=== PATIENT | female | born 1960 | race Caucasian/White ===

== ENCOUNTER 2016-04-08 12:32 | Emergency (ER) | payer OTHER, MEDICARE ==
[~2016-04-08] VITALS: Ht 162.6 cm; Wt 90.7 kg
[~2016-04-08 12:32] MED LIST: BACTRIM DS 8001 TAB PO; BUPROPION XL300 M1 PO; BUPROPION300 MG PO; CARBIDOPA-LEVO1 EAC8 PO; CIPROFLOXACIN500 MG PO; CLONAZEPAM0.5 M2 PO; CLONAZEPAM0.5 MG PO; CLONIDINE HCL0.1 MG PO; CLONIDINE0.1 MG PO; DEPAKOTE ER250 M1 PO; DILAUDID2 MG PO; FOLIC ACID 1 MG PO; FOLIC ACID1 M1 PO; IMITREX50 M1 PO; MOTRIN 600 MG600 MG PO; RISPERDAL1 M1 PO; RISPERIDONE2 MG PO; SINEMET 10-1001 TAB PO; TOPAMAX25 M1 PO; TOPAMAX25 MG PO; TOPAMAX50 M1 PO; TRAZODONE HCL150 M1 PO; TRAZODONE150 MG PO; TYLENOL #31 TAB PO; VALACYCLOVIR1000 MG PO
[2016-04-08 12:46] VITALS: BP 128/74
--- NOTE | 2016-04-08 13:12 | ED SKIN/ALLERGY COMPLAINT ---
History of Present Illness General Chief Complaint: Skin Rash/ Abcess Stated Complaint: RASH ON LEFT BUTTOCKS, PER PT ?SHINGLES Source: patient Exam Limitations: no limitations Vital Signs & Intake/Output Vital Signs & Intake/Output Vital Signs Date Time Temp Pulse Resp B/P Pulse O2 O2 Flow FiO2 Ox Delivery Rate 04/08 1246 97.3 56 18 128/74 99 Room Air Room Air Allergies Coded Allergies: oxycodone (From Percocet) (Intermediate, ITCHY 06/30/15) Reconcile Medications Bupropion HCl (Bupropion XL) (Unknown Strength) TAB.ER.24H (Unknown Dose) PO DAILY ANXIETY (Reported) Clonazepam (Unknown Strength) TABLET (Unknown Dose) PO TID ANXIETY (Reported) Clonidine HCl 0.1 MG TABLET 1 TAB PO DAILY ANXIETY (Reported) Divalproex Sodium (Depakote ER) 250 MG TAB.ER.24H 1 TAB PO QAM (Reported) Folic Acid 1 MG TABLET 1 TAB PO DAILY SUPPLEMENT (Reported) Risperidone (Risperdal) 1 MG TABLET 1 TAB PO DAILY ANXIETY (Reported) Sumatriptan Succinate (Imitrex) 50 MG TABLET 1 TAB PO AD MIGRAINE (Reported) Topiramate (Topamax) (Unknown Strength) TABLET (Unknown Dose) PO DAILY ANXIETY (Reported) Trazodone HCl (Unknown Strength) TABLET (Unknown Dose) PO DAILY ANXIETY ( Reported) Valacyclovir HCl (Valtrex) 1,000 MG TABLET 1 TAB PO TID SHINGLES Valacyclovir HCl (Valacyclovir) 1,000 MG TABLET 1 TAB PO TID SHINGLES Triage Note: TRIAGE: 55 Y/O FEMALE PRESENTS C/O ?SHINGLES TO LEFT BUTTOCKS. REPORTS HISTORY OF SAME, WAS TREATED WITH VALTREX. Triage Nurses Notes Reviewed? yes Onset: Abrupt Duration: constant Timing: single episode today Severity: mild Location: extremities Possible Factors: no cause identified HPI: Patient is a 55-year-old female who presents emergency room saying that her visiting nurse today noticed the patient has concerns of a shingles rash to the left lateral gluteal region in which patient was advised to present to the emergency room. Patient denies any symptoms denies any pain fever chills itching discharge from skin and is otherwise without complaints. Patient states that she's had multiple shingles ERUPTIONS RASHES in the past treated with Valtrex with complete resolution. Denies any recent exposure to any etiology or irritants for symptoms (CECILIO PADILLA) Past History Travel History Traveled to [place] past 21 day No Medical History Any Pertinent Medical History? see below for history Neurological: migraine, Per H&P: New-encephalomalacia EENT: NONE Cardiovascular: NONE Respiratory: NONE Gastrointestinal: colitis Hepatic: NONE Renal: nephrolithiasis, BLADDER INFECTIONS Musculoskeletal: BLE WEAKNESS AT TIMES ?ARTHRITIS Psychiatric: PTSD major depressive disorder with psychotic features Endocrine: NONE Blood Disorders: NONE Cancer(s): NONE PITCH GATHERER/Reproductive: NONE Surgical History Surgical History: non-contributory, N Psychosocial History Who do you live with Patient and family Services at Home Home Health Aide, Nursing, Physical Therapy What is your primary language Danish Tobacco Use: Never used ETOH Use: denies use Illicit Drug Use: denies illicit drug use Family History Hx Contributory? No (CECILIO PADILLA) Review of Systems Review of Systems Constitutional: Reports: no symptoms. EENTM: Reports: no symptoms. Respiratory: Reports: no symptoms. Cardiovascular: Reports: no symptoms. GI: Reports: no symptoms. Genitourinary: Reports: no symptoms. Musculoskeletal: Reports: no symptoms. Skin: Reports: see HPI, change in skin color, rash. Neurological/Psychological: Reports: no symptoms. Hematologic/Endocrine: Reports: no symptoms. Immunologic/Allergic: Reports: no symptoms. All Other Systems: Reviewed and Negative (CECILIO PADILLA) Physical Exam Physical Exam General Appearance: no apparent distress, alert, comfortable Head: atraumatic Eyes: Bilateral: normal appearance. Ears, Nose, Throat: hearing grossly normal Neck: normal inspection, supple Respiratory: normal breath sounds Back: normal inspection, normal range of motion Extremities: normal inspection, normal capillary refill Neurologic/Psych: no motor/sensory deficits, awake, alert Skin: intact Skin Problem Location: lower extremities Lymphatic: no anterior cervical mala Diagram Body: 1) #4 LINEAR PATTERNED MACULAR ERYTHEMATOUS CIRCULAR RASH NONTENDER, NO VESICLES, NO FLUCTUANCE, NO DISCHARGE 2) #4 LINEAR PATTERNED MACULAR ERYTHEMATOUS CIRCULAR RASH NONTENDER, NO VESICLES, NO FLUCTUANCE, NO DISCHARGE (CECILIO PADILLA) Progress Differential Diagnosis: abscess/cellulitis, allergic reaction, angioedema, contact dermatitis, drug reaction, erythema multiforme, lyme disease, piyriasis rosea, RMSF, scarlet fever, shingles, syphilis/gonococcemia, urticaria Plan of Care: PT IS AFEBRILE NONTOXIC APPEARING RASH IS OBSERVED TO HAVE HERPETIC RASH (CECILIO PADILLA) Departure Departure Disposition: HOME OR SELF CARE Condition: Stable Clinical Impression Primary Impression: Shingles rash Referrals: AD PERRY M.D. (PCP/Family) Additional Instructions: As discussed begin the prescription of Valtrex as directed for the full course. PRESCRIPTION IS WAITING AT YOUR PHARMACY-. [facility]. FOLLOW UP WITH YOUR DOCTOR ON SUNDAY IF NO BETTER, CONTINUE TO HAVE YOUR NURSE MONITOR THE RASH, IF SYMPTOMS WORSEN, RETURN TO THE ER. Departure Forms: Customer Survey General Discharge Information Prescriptions: Current Visit Scripts Valacyclovir HCl (Valtrex) 1 TAB PO TID #21 TAB (CECILIO PADILLA) PA/SHIFT COORDINATOR Co-Sign Statement Statement: ED Attending supervision documentation- [] I saw and evaluated the patient. I have also reviewed all the pertinent lab results and diagnostic results. I agree with the findings and the plan of care as documented in the PA's/SHIFT COORDINATOR's documentation. x I have reviewed the ED Record and agree with the PA's/SHIFT COORDINATOR's documentation. [] Additions or exceptions (if any) to the PAs/SHIFT COORDINATOR's note and plan are summarized below: [] (SUKH STEELE,JOSH)
[2016-04-08] MEDS ORDERED: VALTREX1000 MG PO (13:19)
[2016-06-09] MEDS ORDERED: ABILIFY20 M1 PO (15:44)
== END 2016-04-08 14:10 ==
LOC: ERH 12:32
DX: B02.9 Zoster without complications (principal)

== ENCOUNTER 2016-04-25 18:06 | Emergency (ER) | payer OTHER, MEDICARE ==
[~2016-04-25] VITALS: Ht 160 cm; Wt 90.7 kg
[~2016-04-25 18:06] MED LIST changes: +VALTREX1000 MG PO
--- NOTE | 2016-04-25 18:38 | ED CARDIAC/CP/PALPITATIONS ---
History of Present Illness General Chief Complaint: Chest Pain Stated Complaint: CP Source: patient, family, old records Exam Limitations: no limitations Vital Signs & Intake/Output Vital Signs & Intake/Output Vital Signs Date Time Temp Pulse Resp B/P Pulse O2 O2 Flow FiO2 Ox Delivery Rate 04/25 2014 97.2 47 17 158/82 96 Room Air 04/25 1817 97.6 50 18 163/92 98 Room Air Allergies Coded Allergies: oxycodone (From Percocet) (Intermediate, ITCHY 06/30/15) Reconcile Medications Aripiprazole (Abilify) 20 MG TABLET 1 TAB PO DAILY MENTAL HEALTH (Reported) Bupropion HCl (Bupropion XL) (Unknown Strength) TAB.ER.24H (Unknown Dose) PO DAILY ANXIETY (Reported) Carbidopa/Levodopa (Carbidopa-Levo ER 50-200 Tab) 50 MG-200 MG TABLET.ER 1 TAB PO TID [place] (Reported) Clonazepam (Unknown Strength) TABLET (Unknown Dose) PO TID ANXIETY (Reported) Folic Acid 1 MG TABLET 1 TAB PO DAILY SUPPLEMENT (Reported) Nadolol 40 MG TABLET 1 TAB PO DAILY MIGRAINES (Reported) Prazosin HCl 2 MG CAPSULE 1 CAP PO QPM UNKNOWN (Reported) Sumatriptan Succinate (Imitrex) 50 MG TABLET 1 TAB PO AD MIGRAINE (Reported) Triage Note: RECEIVED 55 YO FEMALE C/O MID STERNAL CHEST PAIN RADIATING TO BACK INTERMITTENTLY X 2 WEEKS. USUALLY LASTS A FEW MINITES. TODAY, PAIN STARTED AT 5 PM AND LASTED OVER AN HOUR. PAIN IS MILD, 3/10. MILD SOB. Triage Nurses Notes Reviewed? yes HPI: Patient is a 55 year old female presents complaining of midsternal chest pain intermittent x 2 weeks. Episodes 2-5 minutes approximately 3 episodes per day. No precipitating factors. Pain worsens with deep breath when chest pain is present. Last episode onset at approximately 1700 today and has been continuous , moderate to severe prior to arrival, currently mild. Associated dizziness when pain is present. Denies dyspnea, orthopnea, chest pain with exertion, dyspnea with exertion, lower extremity pain, lower extremity swelling. (ROBERTO SMYTH,SNEHA) Past History Travel History Traveled to [place] past 21 day No Medical History Any Pertinent Medical History? see below for history Neurological: migraine, Per H&P: New-encephalomalacia EENT: NONE Cardiovascular: NONE Respiratory: NONE Gastrointestinal: colitis Hepatic: NONE Renal: nephrolithiasis, BLADDER INFECTIONS Musculoskeletal: BLE WEAKNESS AT TIMES ?ARTHRITIS Psychiatric: PTSD major depressive disorder with psychotic features Endocrine: NONE Blood Disorders: NONE Cancer(s): NONE WATER COMMISSIONER/Reproductive: NONE Surgical History Surgical History: non-contributory, N Psychosocial History Who do you live with Patient and family Services at Home Home Health Aide, Nursing, Physical Therapy What is your primary language Portuguese Tobacco Use: Never used Family History Hx Contributory? No (SNEHA FRAUSTO) Review of Systems Review of Systems Constitutional: Denies: chills, fever. EENTM: Reports: no symptoms. Respiratory: Denies: cough, short of breath. Cardiovascular: Reports: see HPI. GI: Denies: abdominal pain, nausea, vomiting. Genitourinary: Reports: no symptoms. Musculoskeletal: Reports: back pain. Skin: Reports: no symptoms. Neurological/Psychological: Reports: no symptoms. Hematologic/Endocrine: Reports: no symptoms. Immunologic/Allergic: Reports: no symptoms. (SNEHA FRAUSTO) Physical Exam Physical Exam General Appearance: well developed/nourished, alert, awake Head: atraumatic, normal appearance Eyes: Bilateral: normal appearance, PERRL, EOMI. Ears, Nose, Throat: normal pharynx, normal ENT inspection, hearing grossly normal Neck: normal inspection, supple, full range of motion Respiratory: normal breath sounds, chest non-tender, no respiratory distress, lungs clear Cardiovascular: bradycardia (no appreciable murmur) Peripheral Pulses: 2+ radial (R), 2+ radial (L), 2+ dorsalis pedis (R), 2+ dorsalis pedis (L) Gastrointestinal: soft, non-tender Back: normal inspection, normal range of motion Extremities: normal inspection, normal capillary refill, normal range of motion, no edema Neurologic/Psych: no motor/sensory deficits, awake, alert, oriented x 3, normal mood/affect Skin: intact, normal color, warm/dry Lymphatic: no anterior cervical mala Core Measures ACS in differential dx? Yes ASA ordered for poss ACS? Yes-ordered Severe Sepsis Present: No Septic Shock Present: No (SNEHA FRAUSTO) Progress Differential Diagnosis: AMI, aortic dissection, costochondritis, hyperventilation, musculoskeletal pain, myocarditis, pericarditis, pneumonia, pneumothorax, pulmonary embolism, PUD/GERD, unstable angina, V-fib/V-Tach Plan of Care: Orders Procedure Date/time Status Telemetry/Waiter/Waitress Tavern 04/25 1836 Active TROPONIN LEVEL 04/25 1836 Complete D-DIMER 04/25 1836 Complete COMPREHENSIVE METABOLIC PANEL 04/25 1836 Complete CBC WITHOUT DIFFERENTIAL 04/25 1836 Complete EKG 04/25 1806 Active Laboratory Tests 04/25/16 1846: Anion Gap 5, Estimated GFR > 60, BUN/Creatinine Ratio 18.8, Glucose 85, Calcium 9.7, Total Bilirubin 0.5, AST 75 H, ALT 49, Alkaline Phosphatase 118, Troponin I < 0.01, Total Protein 6.8, Albumin 4.0, Globulin 2.8, Albumin/Globulin Ratio 1.4, D-Dimer 244 H, CBC w Diff NO MAN DIFF REQ, RBC 5.19, MCV 81.6, MCH 26.6 L , RDW 16.6 H, MPV 7.0 L, Gran % 69.9, Lymphocytes % 21.0, Monocytes % 7.2, Eosinophils % 1.5, Basophils % 0.4, Absolute Granulocytes 4.8, Absolute Lymphocytes 1.4, Absolute Monocytes 0.5, Absolute Eosinophils 0.1, Absolute Basophils 0, PUBS MCHC 32.6 L Chest pain episodes x 2 weeks with no acute ekg changes and negative troponin. Pain appears atypical for ACS. 04/25/2016 8:59:19 PM: Results of chest x-ray, labs, and ekg discussed with patient and her family member, patient chest pain free. Discussed with Dr. Duarte: can have patient follow up in the office closely for further evaluation. (ROBERTO SMYTH,SNEHA) Diagnostic Imaging: Viewed by Me: Radiology Read. Discussed w/RAD: Radiology Read. CXR Impression: PATIENT: JETT MARCELO PRESENT AGE: 55 PATIENT ACCOUNT NO: [id number] : 61 LOCATION: [facility] ORDERING PHYSICIAN: SNEHA SMYTH SERVICE DATE: 04/25/16-1836 EXAM TYPE: RAD - XRY-CHEST XRAY, PA AND LATERAL EXAMINATION: XR CHEST CLINICAL INFORMATION: Chest pain. COMPARISON: No relevant prior imaging available. TECHNIQUE: 2 views of the chest were obtained. FINDINGS: Lung volumes are low. There is no focal consolidative disease, pleural effusion, or pneumothorax. The cardiac silhouette and upper mediastinal contours are normal. No acute osseous finding. IMPRESSION: Unremarkable chest radiograph. No consolidative disease or effusion. DICTATED BY : JOAN ZAMORA MD DATE/TIME DICTATED:04/25/162050 LEAD SOFTWARE TESTER: ITA DATE/TIME TRANSCRIBED:04/25/162050 CONFIDENTIAL, DO NOT COPY WITHOUT APPROPRIATE AUTHORIZATION. <Electronically signed in Other Vendor System> SIGNED BY: JOAN ZAMORA MD 04/25/162054 Initial ED EKG: sinus bradycardia 49 bpm normal axis, normal intervals, no acute st/t wave changes. Prior EKG: changed (change in rate) Rhythm Strip: sinus bradycardia (SNEHA FRAUSTO) Departure Departure Time of Disposition: 2057 Disposition: HOME OR SELF CARE Condition: Stable Clinical Impression Primary Impression: Chest pain Qualifiers: Chest pain type: unspecified Qualified Code: R07.9 - Chest pain, unspecified Referrals: AD PERRY M.D. (PCP/Family) MEI STEELE PhD,JOVANY Murray Additional Instructions: Follow up with Dr. Duarte(network lead) this week for further evaluation. Call in the morning for appointment. Return to the ER if difficulty breathing, chest pain returning or worsening of symptoms. Departure Forms: Customer Survey General Discharge Information (SNEHA FRAUSTO) PA/SPANISH LECTURER Co-Sign Statement Statement: ED Attending supervision documentation- [] I saw and evaluated the patient. I have also reviewed all the pertinent lab results and diagnostic results. I agree with the findings and the plan of care as documented in the PA's/SPANISH LECTURER's documentation. [X] I have reviewed the ED Record and agree with the PA's/SPANISH LECTURER's documentation. [] Additions or exceptions (if any) to the PAs/SPANISH LECTURER's note and plan are summarized below: [] (WANDER STEELE,LYNDA Schreiber) Critical Care Note Critical Care Note Critical Care Time: non-applicable (SNEHA FRAUSTO)
[2016-04-25 19:06] LABS: ABSOLUTE BASOPHIL COUNT 0 /CUMM (0.0-0.2); ABSOLUTE EOSINOPHIL COUNT 0.1 /CUMM (0.0-0.7); ABSOLUTE GRANULOCYTE CT 4.8 /CUMM (1.4-6.5); ABSOLUTE LYMPH COUNT 1.4 /CUMM (1.2-3.4); ABSOLUTE MONOCYTE COUNT 0.5 /CUMM (0.10-0.60); BASOPHIL % 0.4 % (0.0-2.0); EOSINOPHIL % 1.5 % (0-5); GRANULOCYTE % 69.9 % (42.2-75.2); HEMATOCRIT 42.3 % (37-47); MEAN CORPUSCULAR HGB 26.6 PG (27.0-31.0); MEAN CORPUSCULAR HGB CONC 32.6 G/DL (33.0-37.0); MEAN CORPUSCULAR VOLUME 81.6 FL (81.0-99.0); PLATELET COUNT 211 /CUMM (130-400); RBC DISTRIBUTION WIDTH 16.6 % (11.5-14.5); RED BLOOD CELL CT 5.19 /CUMM (4.20-5.40); WHITE BLOOD CELL COUNT 6.8 /CUMM (4.8-10.8)
[2016-04-25] MEDS ORDERED: ABILIFY20 M1 PO (19:35)
[2016-04-25] MEDS ORDERED: NADOLOL40 M1 PO (19:35)
[2016-04-25] MEDS ORDERED: PRAZOSIN HCL2 M1 PO (19:36)
[2016-04-25] MEDS ORDERED: CARBIDOPA-LEVO1 EAC9 PO (19:38)
[2016-04-25 20:15] VITALS: BP 158/82
--- NOTE | 2016-04-25 20:55 | RADIOLOGY REPORT ---
EXAMINATION: XR CHEST CLINICAL INFORMATION: Chest pain. COMPARISON: No relevant prior imaging available. TECHNIQUE: 2 views of the chest were obtained. FINDINGS: Lung volumes are low. There is no focal consolidative disease, pleural effusion, or pneumothorax. The cardiac silhouette and upper mediastinal contours are normal. No acute osseous finding. IMPRESSION: Unremarkable chest radiograph. No consolidative disease or effusion.
[2016-06-09] MEDS ORDERED: ABILIFY20 M1 PO (15:44)
== END 2016-04-25 21:06 ==
LOC: ERH 18:06
PROVIDERS: Physician Assistant
DX: R07.9 Chest pain, unspecified (principal)
CPT/HCPCS: 93005; 93010

== ENCOUNTER → 2016-05-09 | Day surgery (SDC) | payer OTHER, MEDICARE ==
[~2016-05-09] VITALS: Ht 162.6 cm; Wt 93.0 kg
[~2016-05-09] MED LIST changes: +ABILIFY20 M1 PO; +CARBIDOPA-LEVO1 EAC9 PO; +NADOLOL40 M1 PO; +PRAZOSIN HCL2 M1 PO
--- NOTE | 2016-05-09 13:14 | Operative Report ---
Operative/Inv Procedure Report Surgery Date: 05/09/16 Name of Procedure: right ureter ESWL. fluoroscopy Pre-Operative Diagnosis: right ureter stone with hydro. Post-Operative Diagnosis: same Estimated Blood Loss: none Surgeon/Stitcher Set Up Operator Automatic: CECILLE SKAGGS MD Anesthesia: moderate sedation Complications: none Operative/Procedure Note Note: The patient was taken to the operating room and placed on the ESWL table in supine position. With the patient awake, timeout was performed to cofirm correct identity, procedure, laterality, anesth., and other pertinent rodriguez- operative information. The patient's RIGHT flank was placed over the table cut -out, overlying the dome of the shockwave generator. C-arm fluroscopy, as well as renal US, was used to locate the stone, and evaluate the RIGHT kidney. The stone was clearly visible on fluoroscopy at the distal right ureter, measuring approximately 8 mm stone burden. Renal US confimred mild hydronephrosis, and one additional 6 mm stone at LP, no tumor, seen in the right kidney. After adequate anesthesia, the right ureter stone's position was optimized for Shockwave lithotrypsy using fluoroscopy in AP and oblique views. The E.S.W.L. was initiated at low power levels x 200 shocks. After noting the patient's tolerance to the shockwaves, the shock wave power level was quickly maximized. Toward the end of the procedure, the composition of the stone had changed significantly indicating the pulverization of the ureter stone. A total of 3000 shockwaves were delivered to the stone in order to achieve adequate lithotrypsy. The patient tolerated both the procedure well, was awakened, and taken to recovery in satisfactory condition via stretcher. The pt will be dischared home with pain meds, diet orders, and intructions to catch fragments with straining the urine. The patient is to have follow-up renal ultrasound and KUB in 1-2 weeks, prior to follow-up visit in my office. Discharge Disposition: Same Day Admissions CC: CECILLE SKAGGS MD
== END ==
LOC: STS 03:09
DX: N13.2 Hydronephrosis with renal and ureteral calculous obstruction (principal); Z79.899 Other long term (current) drug therapy

== ENCOUNTER → 2016-06-13 | Day surgery (SDC) | payer OTHER, MEDICARE ==
[~2016-06-13] VITALS: Ht 162.6 cm; Wt 90.7 kg
--- NOTE | 2016-06-13 14:03 | Operative Report ---
Operative/Inv Procedure Report Surgery Date: 06/13/16 Name of Procedure: CYSTOSCOPY: RIGHT URETEROSCOPY WITH RETROGRADE PYELOGRAM, RIGHT STENT PLACEMENT. Pre-Operative Diagnosis: RIGHT HYDRO. Post-Operative Diagnosis: SAME Estimated Blood Loss: scant Surgeon/Claims Manager: CECILLE SKAGGS MD Anesthesia: laryngeal mask airway Specimens: UCX Complications: NONE Operative/Procedure Note Note: Patient was taken to the operating room placed on the OR table in supine position. Timeout was performed, with the patient awake, in order to confirm the patient's correct identity, procedure, laterality, anesthesia, and other pertinent perioperative information.. After adequate anesthesia and antibiotics , the patient was then placed in lithotomy stirrups, draped and prepped in the usual surgical fashion. A 22 Turkish cystoscope sheath with 30 angle lens was inserted without difficulty. Upon entering the bladder, the bladder was noted to be free of tumor, free of stone. Both orifices were in their orthotopic position, with clear reflux from the left ureter, but no reflux in the right. The right ureteral orifice was intubated with an 8 Turkish cone-tipped catheter. Retrograde pyelogram was performed revealing a amorphos\us filling defect in the renal pelvis, with hydronephrosis. The cone-tipped catheter was removed, and then the right orifice was intubated with a 0.035 safety gluidewire. The Glidewire was advanced into the right ureter, and renal pelvis, with fluoroscopic visualization. The flexible ureteroscope was railroaded over the Glidewire. With fluoroscopic confirmation of the flexible ureteroscope in the right renal pelvis, the Glidewire was removed. Pyelosocpy and calyxoscopy was performed revealing right mid-pole 6mm stone. The gluidewire was re-inserted via the ureteroscope, and the ureteroscope was removed, leaving the gluide wire in place. The gluide wire was then back-loaded onto a 22 Turkish cystoscope sheath with a 30 angle lens. The cystoscope was then reinserted into the bladder where the right orifice was visualized with the Glidewire and place. Over this Glidewire a 6x22 Bard onlay stent was inserted with the proximal coil visualized in the renal pelvis with fluoroscopy and the distal coil in the bladder cystoscopically the Glidewire was removed. Fluoroscopy was then performed in order to reveal the stent to be in proper place. The bladder was then drained via the cystoscope which was then removed. The patient tolerated the procedure well, all sponge needle and a cement count were correct at the end of the case, and the patient was awakened and taken to the recovery room in satisfactory condition. Findings: 6MM RIGHT MID-POLE STONE: 6X22 STENT INSERTED WITHOUT DIFFICULTY Discharge Disposition: PACU CC: CECILLE SKAGGS MD
--- NOTE | 2016-06-14 08:39 | RADIOLOGY REPORT ---
EXAMINATION: XR INTRAOPERATIVE FLUOROSCOPY AND SPOT FILMS CLINICAL INDICATION: Right cystoscopy with retrograde pyelogram and stent placement COMPARISON: Renal ultrasound dated 05/30/2016 and KUB dated 05/30/2016. TECHNIQUE: Fluoroscopic equipment was dedicated to the operating room for the performance of a cystoscopy and retrograde pyelogram. 4 fluoroscopic spot films were obtained and are archived in PACS. Fluoroscopy time: 0.4 minutes. FINDINGS: There is partial opacification of a dilated right renal pelvis and upper pole calyces and right ureter. On the final images, a stent is in place with proximal pigtail in the proximal right ureter. IMPRESSION: Right ureteral stent in place with proximal pigtail in the proximal ureter.
== END ==
LOC: STS 01:21
DX: N13.2 Hydronephrosis with renal and ureteral calculous obstruction (principal); Z87.442 Personal history of urinary calculi
CPT/HCPCS: 74000; C2617; J2250

== ENCOUNTER → 2016-07-06 | Day surgery (SDC) | payer OTHER, MEDICARE ==
[~2016-07-06] VITALS: Ht 162.6 cm; Wt 90.7 kg
--- NOTE | 2016-07-06 13:32 | Operative Report ---
Operative/Inv Procedure Report Surgery Date: 07/06/16 Name of Procedure: Cystoscopy, right stent removal, right ureteroscopy with laser standby, basket extraction of ureter stone. LEFT renal ESWL with fluoroscopy. Pre-Operative Diagnosis: LEFT renal stone: RIGTH ureter stone and stent. Post-Operative Diagnosis: same Estimated Blood Loss: scant Surgeon/Bench Hand Machine: ECCILLE SKAGGS MD Anesthesia: moderate sedation Specimens: right ureter stone and stent. Complications: none Condition: improved-pain free in RR Operative/Procedure Note Note: The patient was taken to the operating room placed on the OR table in supine position. Timeout was performed, with the patient awake, in order to confirm correct procedure, laterality, anesthesia, and other pertinent perioperative information. After adequate anesthesia, and antibiotics, the patient's left flank was then positioned over the ESWL table cutout overlying the treatment dome. Fluoroscopy, using AP and oblique views, as well as renal ultrasound, or performed in order to locate the left renal stone. The position of the stone was optimized, and positioned in the middle of the ESWL crosshairs. The stone was measured to be approximately 6 mm in size. ESWL was initiated at low power, and after 200 shockwaves delivered, noting the patient's tolerance to the shockwaves, the power was increased to maximum. At the end of 2500 shockwaves, fluoroscopy confirms the change in consistency of the stone, indicating shattering of the stone. The patient tolerated this procedure well. The patient was then frog-legged, draped and prepped in the usual surgical fashion. The holmium YAG laser was ready at the patient's bedside. A 22 Guatemalan cystoscope sheath with 30 angle lens was inserted without difficulty. Upon entering the bladder, the bladder was noted to be free of tumor free of stone. The right orifice was intubated with a double J stent, which was grasped with alligator forceps. The cystoscope along with entire stent was removed without difficulty. The cystoscope was then reinserted into the bladder, and the right orifice was intubated with a 0.035 Glidewire. The Glidewire was advanced into the right renal pelvis fluoroscopic visualization. The cystoscope was then removed, leaving the Glidewire in place. A flexible ureteroscope was then railroaded over the Glidewire, and advanced into the bladder and into the right kidney with fluoroscopic visualization following the Glidewire. The Glidewire was removed, and calyxoscopy. with pyleloscopy of the right kidney was performed revealing no tumor, and no stone. As a flexible ureteroscope was extracted, a ureteral stone was visualized. Using the 0-tip basket, through the ureteroscope , the stone was grasped, and the ureteroscope along with basket with stone was extracted without difficulty. The stone was sent to pathology for analysis. The laser was then deactivated. The patient tolerated the procedures well, and was taken to the recovery room in satisfactory condition. The patient is discharged home with pain medication, and follow-up instructions with in 2-3 weeks' time. Discharge Disposition: Same Day Admissions CC: CECILLE SKAGGS MD
== END ==
LOC: STS 01:59
DX: N20.0 Calculus of kidney (principal); N20.1 Calculus of ureter; Z87.442 Personal history of urinary calculi; G20 Parkinson's disease
CPT/HCPCS: 82355; J1885; J2250

== ENCOUNTER → 2017-08-14 | Day surgery (SDC) | payer OTHER, MEDICARE ==
[~2017-08-14] VITALS: Ht 162.6 cm; Wt 90.7 kg
[~2017-08-14] MED LIST changes: +CYCLOBENZAPRINE10 M1 PO; +FLOMAX0.4 M1 PO; +IBUPROFEN800 M1 PO; +KETOROLAC TROME10 M1 PO
--- NOTE | 2017-08-14 13:47 | Operative Report ---
Operative/Inv Procedure Report Surgery Date: 08/14/17 Name of Procedure: right renal ESWL/fluoroscopy Pre-Operative Diagnosis: right renal stone (6mm) midpole Post-Operative Diagnosis: same Estimated Blood Loss: none Surgeon/Diagnostics Tech: Erik Figueroa MD Anesthesia: moderate sedation Complications: none Operative/Procedure Note Note: The patient was taken to the operating room placed on the OR table in supine position. Timeout was performed, with the patient awake, in order to confirm correct procedure, laterality, anesthesia, and other pertinent perioperative information. After adequate anesthesia and antibiotics, the patient was then positioned over the ESWL table cutout overlying the treatment dome. Fluoroscopy, using AP and oblique views, as well as renal ultrasound, or performed in order to locate the stone. The position of the RIGHT renal stone was optimized, and positioned in the middle of the ESWL crosshairs. The stone was measured to be approximately 6 mm in size. ESWL was initiated at low power, and after 200 shockwaves delivered , noting the patient's tolerance to the shockwaves, the power was increased to maximum. At the end of 2500 shockwaves, fluoroscopy confirms the change in consistency of the stone, indicating shattering of the stone. All sponge needle and instrument count were correct at the end of the case. The patient tolerated the procedures well, and was taken to the recovery room in satisfactory condition. The patient is discharged home with pain medication, and follow-up instructions with in 2-3 weeks' time. Discharge Disposition: Same Day Admissions CC: Erik Figueroa MD
== END ==
LOC: STS 01:16
DX: N20.0 Calculus of kidney (principal); Z87.442 Personal history of urinary calculi; G20 Parkinson's disease
CPT/HCPCS: J2250

== ENCOUNTER → 2017-10-04 | Day surgery (SDC) | payer OTHER, MEDICARE ==
[~2017-10-04] VITALS: Ht 162.6 cm; Wt 77.1 kg
--- NOTE | 2017-10-04 11:01 | Operative Report ---
Operative/Inv Procedure Report Surgery Date: 10/04/17 Name of Procedure: cystoscopy: right ureteroscopy; laser lithotrypsy of UPJ stone: retrograde pyelogram: fluoroscopy: right stent placement Pre-Operative Diagnosis: right ureter stone with colic. Post-Operative Diagnosis: same Estimated Blood Loss: scant Surgeon/Recreation Therapy Aides Teacher: Erik Figueroa MD Anesthesia: moderate sedation Specimens: right ureter stone Complications: none Operative/Procedure Note Note: The patient was taken to the operating room and transferred onto the OR table in supine position. Timeout was performed, with the patient awake, in order to confirm the patient's correct identity, procedure, laterality, anesthesia, antibiotics, and other pertinent perioperative information. After adequate anesthesia and antibiotics, the patient was then placed in lithotomy stirrups, draped and prepped in the usual surgical fashion. A 22 Mauritian cystoscope sheath with the 30 angle lens was inserted into the ureathra without difficulty. Upon entering the bladder, the bladder was noted to be free of tumor, and free of stone. Both ureteral orifices were in their orthotopic position, with clear reflux from the left ureter. The right ureteral orifice was intubated with an 8 Mauritian tiger-tail catheter. Retrograde pyelogram was performed revealing a filling defect in the proximal ureter consistent with large stone. On fluoroscopy, there was mild proximal hydronephrosis. The tiger-tail catheter was removed, and then the right orifice was intubated with a 0.035 safety gluidewire. The Glidewire was advanced into the right ureter, and into the right renal pelvis, with fluoroscopic visualization. Over the Glidewire a 10 Mauritian by 35 cm selt-dilating ureteral access sheath was gently railroaded over the Glidewire. With fluoroscopic visualization, gentle dilatation with advancement of the ureteral access sheath was accomplished without difficulty. The obturator was removed leaving the access sheath in place. The gluidewire was left in place, and the flexible ureteroscope was advanced via the access sheath into the right ureter without difficulty. The large ureter stone was visualized, and under direct visualization the 400 g holmium YAG laser fiber was inserted through the ureteroscope. With the laser fiber in direct contact with the stone, the yag laser was activated, and laser lithotrypsy under direct visualization was performed. The ureter stone was completely pulvorized into multiple fragments, confirmed on fluoroscopy. Several framents were extracted and sent for analysis. The mucosa around the obstructing stone was noted to be edematous, therefore requiring insertion of a new stent to allow proper healing. The flexible ureteroscope was then advanced, and used to evaluate the right renal pelvis, and all calyxes. No additional stones, nor tumor was seen in the renal pelvis, nor any of the calyxes. Before removing the ureteroscope, the gluidewire was re- inserted into the ureteroscope, to be used for subsequent stent placement. With the flexible ureteroscope slowly retracted, he entire length of the ureter was aslo visualize in order to confim no significantly sized stone framents, nor tumor was seen on the way out. The Glidewire was then backloaded onto a 22 Mauritian cystoscope sheath with a 30 angle lens. The cystoscope was then reinserted into the bladder, where the right orifice was visualized with the Glidewire and place. Over this wire a 6 x 22 Bard onlay stent was inserted; with the proximal coil visualized in the renal pelvis with fluoroscopy, and the distal coil in the bladder seen cystoscopically , the wire was removed. Fluoroscopy was then performed in order to reveal the stent to be in proper place. The bladder was then drained via the cystoscope, which was then removed. All sponge, needle, and instrument count was correct at the end of the case. The patient tolerated both procedures well, and was taken to the recovery room in satisfactory condition. Once discharged, the pt. will have pain medication, antibiotics, and instructions to follow up in one or 2-4 week's time Discharge Disposition: PACU CC: Erik Figueroa MD
--- NOTE | 2017-10-04 15:22 | RADIOLOGY REPORT ---
EXAMINATION: X-RAY URETEROSCOPY IN THE OR CLINICAL INFORMATION: Right stent placement. COMPARISON: X-rays of the kidneys 08/30/2017. TECHNIQUE: 9 images of the pelvis and right abdomen were obtained in the along during right urinary stent placement. FINDINGS: The study demonstrates placement of a right ureteric guidewire and retrograde pyelogram. Placement of a urinary stent is demonstrated on the last image. Number of images: 9. Fluoroscopy time: 0.1 minutes. IMPRESSION: 1. Multiple images during right urinary stent placement. 2. Please see operative notes for further details.
== END ==
LOC: STS 01:45
DX: N13.2 Hydronephrosis with renal and ureteral calculous obstruction (principal); Z87.442 Personal history of urinary calculi; E11.9 Type 2 diabetes mellitus without complications; Z79.84 Long term (current) use of oral hypoglycemic drugs; M19.90 Unspecified osteoarthritis, unspecified site
CPT/HCPCS: 76000; C2617